=== PATIENT | male | born 1965 | race Caucasian/White ===

== ENCOUNTER → 2018-05-03 | Outpatient (CLI) | payer OTHER ==
[~2018-05-03] VITALS: Ht 182.9 cm; Wt 89.7 kg
[~2018-05-03] MED LIST: ALLOPURINOL 10100 M1 PO; AMBIEN 5 MG TABL5 M1 PO; ASPIR 8181 MG PO; BOTOX100 UNIT IM; CHLORTHALIDONE25 MG PO; CYMBALTA30 MG PO; DICLOFENAC SOD50 MG PO; ELOCON15 GM TOP; EVOXAC30 MG PO; FIBER0.4 GM PO; FLONASE 0.05%50 MCG NASAL; GAVISCON 80-141 EACH PO; IRON325 PO; METFORMIN HCL500 MG PO; MUCINEX600 MG PO; NEURONTIN600 MG PO; PRILOSEC 10MG C10 MG PO; PROBIOTIC1 EAC1 PO; PROTONIX40 M1 PO; SUDAFED 12 HOU120 MG PO; SYNTHROID75 MCG PO; TOPROL XL100 MG PO; TREXIMET 85-501 EACH PO; TRIAMCINOLONE A80 G2 TOP; UNICOMPLEX M TA1 TA1 PO; VITAMIN B-12500 MCG PO; VITAMIN D2000 UNI1 PO; WELLBUTRIN XL300 MG PO; XANAX 0.25 MG0.25 MG PO; XIIDRA1 EACH OPHTHALMIC; XOLAIR150 MG SUBQ; ZEMBRACE S3 MG/0.5 M SUBQ; ZOMIG2.5 M1 NASAL; ZOMIG5 M1 NASAL
--- NOTE | ~2018-05-03 | HPC ---
[facility] [place] [address] PAIN MANAGEMENT CONSULTATION Name: TORI OROZCO Room #: REG KALYAN Garcia.#: [id number] Admission: 05/03/18 Attend Phys: Gilberto Anders MD Discharge: Date of : 63 Report #: [id number] THIS REPORT FOR: //name// CC: Carlos Diop MD Physician staff Gilberto LASSITER DATE OF SERVICE: 05/03/2018 DATE OF REGISTRATION: 05/03/2018 CHIEF COMPLAINT: Deep pain in the right buttock radiating into the right thigh, calf, into the toes. HISTORY OF PRESENT ILLNESS: I am seeing the patient today at the request of Kristina Castillo APN and Dr. Carlos Diop. The patient is here today complaining of lumbar radicular pain. He has pain down the posterior lateral aspect of the leg, described as a tightness. It has been constant and worsening over the last 3 months. Standing is worse. Relief comes with sitting, but the pain never goes away. Described as shooting and throbbing. Pain intensity today is an 8/10. The patient sees multiple physicians for multiple conditions including a psychiatrist, Dr. Ling who provides multiple centrally acting medications for depression and anxiety. He also sees Dr. Rush and Dr. Diop [facility], Dr. Stokes a neurologist to help with headaches and his primary care physician, Dr. Randee Lassiter. Between these multiple physicians, he is provided a number of different medications, which were reviewed in detail. MEDICATIONS: Allopurinol, Ambien, aspirin, chlorpheniramine, Cymbalta, domperidone, ____, levothyroxine, metformin, Mucinex, Neurontin, Protonix, Sudafed, Toprol, Wellbutrin, Xanax, multiple daily supplements and some p.r.n. medications for migraine including Zomig and Cambia. He has had Botox injections, uses Xolair in every 2 weeks and takes eye drops Xiidra and uses some topical creams for urticaria. ALLERGIES: ATROPINE, DEMEROL, SODIUM BREVITAL, VALIUM, CIPRO, ERYTHROMYCIN, REGLAN, LATEX, ADHESIVE TAPE. PAST SURGICAL HISTORY: Positive for appendectomy with mesenteric adenitis, sinus surgery 3 times in the and twice in the early , left knee surgery with arthroscopy, right knee surgery with arthroscopy, bursa removal right knee, tarsal tunnel surgery, plantar fasciitis surgery in 2011, epicondyle release right elbow, total knee replacement, right knee in August 2015, shoulder arthroscopy for SLAP tear in 2015, [place] [address] PAIN MANAGEMENT CONSULTATION Name: TORI OROZCO Room #: DOM Teixeira#: [id number] Admission: 05/03/18 Attend Phys: Gilberto Andres MD Discharge: Date of : 63 Report #: [id number] correction. PAST MEDICAL HISTORY: Positive for prediabetic condition, asthma, hypertension, urticaria, kidney disease, hypothyroidism, gastritis, and history of ulcers. 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 His migraines kept him out of the classroom. 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 REVIEW OF SYSTEMS: Positive for weight loss, fatigue, headaches, blurred vision, chronic sinus problems, asthma, wheezing, nausea, vomiting, chronic peptic ulcer disease, nocturia, kidney stones. He complains of lightheadedness and dizziness, numbness and tingling sensations in the affected leg and tremors. He suffered from memory loss, confusion, depression and insomnia by his own report. PHYSICAL EXAMINATION: GENERAL: He is a pleasant 53-year-old. VITAL SIGNS: His blood pressure 144/96, heart rate 86. His oxygen saturation was 98%. CHEST: Clear. CARDIAC: Rhythm is regular. MUSCULOSKELETAL: Examination of the spine reveals mild tenderness and pain. Pain was noted with forward flexion and extension. Straight leg raising is mildly positive. Pain follows more of an L3-L4 distribution. Sensation is intact. No focal weakness. MRI scan dated 04/27/2018 was reviewed showing a 6 mm anterolisthesis of L5 on S1 with foraminal disk bulge and resulting in right foraminal stenosis and involving the right L5 nerve root. Although pain does not classically follows typical distribution of L5 and he has more anterior thigh pain, I think an epidural steroid injection is appropriate at this time both for diagnostic and therapeutic purposes. Procedure was explained in detail and he is anxious to proceed. He was taken to the fluoroscopic suite, placed prone, skin prepped with ChloraPrep. Skin anesthetized at L4-L5 between his findings on MRI in the area of his symptoms. A 20-gauge Tuohy epidural needle advanced first attempt in the epidural space with loss of resistance. There was no blood or CSF aspirated. 1 mL of Omnipaque injected. Good spread of dye observed in the epidural space followed by 3 mL of 0.5% lidocaine mixed with 80 mg of triamcinolone. He [address] [address] PAIN MANAGEMENT CONSULTATION Name: TORI OROZCO Room #: DOM GarciaTomasa#: [id number] Admission: 05/03/18 Attend Phys: Gilberto Anders MD Discharge: Date of : 63 Report #: [id number] tolerated the procedure well and was observed for 45 minutes and discharged. Follow up in 1 month. By: [id number] Giblerto Anders MD /nt
[2018-05-03 09:01] VITALS: BP 144/96
== END | disposition home or self-care (01) ==
LOC: PAIN 06:52
DX: M54.16 Radiculopathy, lumbar region (principal); I10 Essential (primary) hypertension; E11.9 Type 2 diabetes mellitus without complications; J45.909 Unspecified asthma, uncomplicated; E03.9 Hypothyroidism, unspecified; F32.9 Major depressive disorder, single episode, unspecified; Z87.19 Personal history of other diseases of the digestive system; Z87.448 Personal history of other diseases of urinary system; Z91.040 Latex allergy status; Z88.8 Allergy status to other drugs, medicaments and biological substances; Z98.890 Other specified postprocedural states; Z96.651 Presence of right artificial knee joint; Z79.82 Long term (current) use of aspirin; Z79.899 Other long term (current) drug therapy

== ENCOUNTER → 2018-05-31 | Outpatient (CLI) | payer OTHER ==
[~2018-05-31] VITALS: Ht 182.9 cm; Wt 88.0 kg
--- NOTE | ~2018-05-31 | HPC ---
[facility] [place] [address] PAIN MANAGEMENT CONSULTATION Name: CINTIASaúlTORI Bryant Room #: REG [facility]#: [id number] Admission: 05/31/18 Attend Phys: Gilberto Anders MD Discharge: Date of : 63 Report #: [id number] THIS REPORT FOR: //name// CC: Physician staff Gilberto ROBLES DATE OF SERVICE: 05/31/2018 Followup visit for right lumbar radiculopathy following the L4-L5 distribution. The patient has an MRI in hand, which shows that the L5-S1 anterolisthesis is causing severe right foraminal stenosis and a mass effect on the right L5 nerve root. I gave him an L5-S1 epidural injection at last visit, which provided good relief, but the results have dissipated somewhat. He is still much better than he was before last visit when it was difficult for him to even get through the day. Pain intensity has increased back some to about a 6/10 with certain activities including standing and walking. Pain is a 6 in his foot and a 5 in his back. We discussed the possibility of a transforaminal injection at L5-S1 on the right. All medications were reviewed in detail. PHYSICAL EXAMINATION: GENERAL: Today, he is pleasant, alert and oriented without signs of overmedication. VITAL SIGNS: His blood pressure is 128/87, heart rate 88, respirations 16. His BMI is 26.3. MUSCULOSKELETAL: Walks with antalgic features. He has straight leg raising on the right reproducing pain in the right L5 distribution. Sensation is intact. Strength is intact. Deep tendon reflexes are diminished bilaterally. IMPRESSION: Low back pain with radiculopathy, L4-L5 distribution. RECOMMENDATIONS: Transforaminal epidural injection to L5-S1 under fluoroscopic guidance. Preauthorization was achieved and he was taken to fluoroscopic suite room for treatment. We did perform a timeout prior to the injection. We then prepped the left side intending to do the right. I numbed the skin with 1% lidocaine and advanced the needle down towards the neural foramen before we realized that we were on the contralateral side. The needle was removed. The patient was immediately made aware that we had placed the needle initially in the wrong side, but we had not performed the injection, only provided local anesthetic. There should be no sequelae. He agreed that we will proceed with the right. The skin was then anesthetized over the right neural foramen [address] [address] PAIN MANAGEMENT CONSULTATION Name: TORI OROZCO Room #: REG CLI [facility]#: [id number] Admission: 05/31/18 Attend Phys: Gilberto Anders MD Discharge: Date of : 63 Report #: [id number] laterally. Using triplanar fluoroscopic views, I advanced needle gently into the neural foramen. There was no blood or CSF aspirated. 1 mL of Omnipaque demonstrated excellent spread into the epidural space, spread of medicine along the L5 nerve root, but there was also extension superiorly into the L4 and inferiorly into the S1 region. It was then followed by 5 mL of 0.75% lidocaine mixed with 80 mg of triamcinolone. He tolerated the procedure well and was observed for 45 minutes. Pain score was 0 at discharge. Followup visit is planned as needed. By: [id number] Gilberto Anders MD /nt
[2018-05-31 14:46] VITALS: BP 128/87
== END | disposition home or self-care (01) ==
LOC: PAIN 06:15
DX: M54.16 Radiculopathy, lumbar region (principal); G89.29 Other chronic pain; M10.9 Gout, unspecified; Z98.890 Other specified postprocedural states; Z88.8 Allergy status to other drugs, medicaments and biological substances; Z79.82 Long term (current) use of aspirin; Z79.899 Other long term (current) drug therapy; Z91.040 Latex allergy status

== ENCOUNTER → 2018-11-08 | Outpatient (CLI) | payer OTHER ==
[~2018-11-08] VITALS: Ht 182.9 cm; Wt 88.5 kg
[~2018-11-08] MED LIST changes: +domperidone PO
[2018-11-08 14:57] VITALS: BP 141/92
--- NOTE | 2018-11-08 15:03 | NUR ---
Pain Clinic Assessment: 1. History of Osteoarthritis: Not Applicable History of Rheumatoid Arthritis: Not Applicable 2. Height: 6 ft. 0 in. 182.9 cm. Weight: 195.0 lb. oz. 88.452 kg. Patient's BMI: 26.4 3. Vital Signs: BP: 141/92 Pulse: 85 Resp: 16 Temp: 02 Sat: 97 ECG Mon: 4. Pain Intensity: 3 5. Fall Risk: Dizziness: N Needs help standing or walking: N Fallen in the last 3 months: N Fall risk comments: 6. Patient on Blood Thinner: None 7. History of Hypertension: Y 8. Opioid Therapy greater than 6 weeks: N Opiate Contract Signed: 9. Risk Assessment Tool Provided: LOW- 2 10. Functional Assessment Tool: 54/70 11. Recreational Drug Use: Never Drug Type: Tobacco Use: Never Smoker Tobacco Type: Amount or Packs/day: How Many Years: Alcohol Use: No Frequency: Quant:
--- NOTE | 2018-11-14 11:18 | HPC ---
[facility] [place] [address] PAIN MANAGEMENT CONSULTATION Name: TORI OROZCO Room #: REG KALYAN TamayoTomasaHarry.#: [id number] Admission: 11/08/18 Attend Phys: Gilberto Anders MD Discharge: Date of : 63 Report #: [id number] THIS REPORT FOR: //name// CC: Edouard Marrero MD Physician staff Gilberto ROBLES DATE OF SERVICE: 11/08/2018 HISTORY OF PRESENT ILLNESS: The patient is here today for a very specific procedure, an L5 selective nerve root block. He has been evaluated by Dr. Marrero's team and they have asked us to perform this is a diagnostic injection. I have treated the patient previously for right lumbar radiculopathy following an L5 distribution. He received a transforaminal epidural injection at L4-L5 under fluoroscopic guidance with short-term benefit in the past. The difference between today's injection and the injection of the past will be that the epidural injection was intended to provide medication through the epidural space for broad spread. This would provide relief of multiple nerve roots including the L5-S1 nerve root and oftentimes the L4 nerve root as well. He responded very favorably short term to that injection. It is, however, not diagnostic of an L5 impingement at the neural foramen. I discussed this in some length with the patient and his . He understands that today's procedure is not intended to provide long-term benefit. MEDICATIONS: Reviewed and there is an extensive list on the chart. Please see the electronic medical record. There are a number of centrally acting medications including alprazolam, bupropion, gabapentin, domperidone, Cymbalta, zolpidem. PAST MEDICAL HISTORY: Significant for left foot surgery, hammertoe correction, shoulder surgery, total knee replacement on the right, epicondylar release of right elbow, plantar fascia surgery on the left foot, bursectomy on right knee and arthroscopy for meniscal tear, sinus surgery on 5 separate occasions and appendectomy performed for what was found to be mesenteric adenitis. ALLERGIES: ATROPINE, DEMEROL, SODIUM PENTOTHAL, CIPRO, ERYTHROMYCIN, REGLAN, LATEX AND ADHESIVE TAPE. PHYSICAL EXAMINATION: GENERAL: Pleasant gentleman, alert and oriented. No signs of overmedication. He is slightly anxious about today's procedure. VITAL SIGNS: His blood pressure is 141/92, heart rate 85, respirations 16. MUSCULOSKELETAL: His pain distribution with ambulation and straight leg raising [address] [address] PAIN MANAGEMENT CONSULTATION Name: TORI OROZCO Room #: [facility] [id number] Admission: 11/08/18 Attend Phys: Gilberto Anders MD Discharge: Date of : 63 Report #: [id number] is not consistent with a simple L5 distribution. Radiates through the anterior thigh into the calf down to the foot. It does have some L5 distribution into the foot along the dorsal aspect. IMAGING: MRI scan shows chronic bilateral L5 pars interarticularis fractures with 6 mm of anterolisthesis of L5 on S1. There is a small circumferential disk bulge as well and this results in severe right foraminal stenosis and mass effect upon the exiting right L5 nerve root. IMPRESSION: Right leg pain with radicular symptoms that are not completely consistent with a simple right L5 nerve root compression. The patient does have right foraminal stenosis. PLAN: Right L5 selective nerve root block under fluoroscopic guidance. DESCRIPTION OF PROCEDURE: After informed consent, he was taken to fluoroscopic suite, placed prone, skin prepped with ChloraPrep. Skin anesthetized over the L5-S1 neural foramen on the right. Using triplanar fluoroscopic views, I advanced the needle carefully into position just outside of the neural foramen. 0.5 mL of Omnipaque was injected and spread of dye was seen along the L5 nerve root tracing it out in fact, but not extending into the neural foramen, carefully avoiding an epidural spread or injection to contaminate the results. I then injected 2 mL of 1% lidocaine. A needle was removed. He tolerated the procedure well. There were no complications. Early results of the diagnostic injection noted that his pain score remained at 3 in comparison to his admission presenting pain score of 3. This would suggest that the pain is not solely related to the L5 nerve root. These readings were taken at the peak of the effect. Diary was provided. He will follow up with Dr. Marrero to discuss the results of the injection. A second injection may need to be performed to rule out any bias by the patient and/or a placebo effect. <ELECTRONICALLY SIGNED> By: Gilberto Anders MD 11/14/18 [id number] Gilberto Anders MD /nt
== END | disposition home or self-care (01) ==
LOC: PAIN 07:49
DX: M48.061 Spinal stenosis, lumbar region without neurogenic claudication (principal); M54.16 Radiculopathy, lumbar region; G89.29 Other chronic pain; Z88.8 Allergy status to other drugs, medicaments and biological substances; Z91.040 Latex allergy status; Z98.890 Other specified postprocedural states; Z90.49 Acquired absence of other specified parts of digestive tract; Z96.651 Presence of right artificial knee joint; Z79.899 Other long term (current) drug therapy; Z79.82 Long term (current) use of aspirin